=== PATIENT | female | born 1990 | race Caucasian/White ===

== ENCOUNTER 2017-03-21 19:44 | Emergency (ER) | payer OTHER ==
[~2017-03-21] VITALS: Ht 175.3 cm; Wt 90.7 kg
[~2017-03-21 19:44] MED LIST: CEPH500; CEPH500 PO; CLON1 PO; EXPECTA PRENAT1 EACH PO; FLUC150A; IRON150C; LORA.5 PO; NITR100CA; NITR100CA PO; Naprosyn500 MG PO; Norco 5-325 Ta1 EACH PO; OXYACE5T PO; PRENATAL TABLE1 EAC1 PO; PROM25; PROM25 PO; Percocet 5-3251 EACH; QUET300 PO; SERT100 PO; TUMS300 MG PO; Tylenol325 MG PO; Ultram50 MG PO; VALP250 PO; VENL75ER PO; Venlafaxine HCl50 MG PO; Zithromax250 MG PO; Zofran Odt4 MG SL
[2017-03-21] MEDS ORDERED: VENL150ER PO (20:06)
[2017-03-21] MEDS ORDERED: Hydroxyzine HCl50 MG PO (20:06)
[2017-03-21 20:46] LABS: Influenza A Negative (NEGATIVE); Influenza B Negative (NEGATIVE)
[2017-03-21] MEDS ORDERED: Arthritis Pai42.5 GM TOP (21:34)
[2017-03-29] MEDS ORDERED: Prenatabs FA T1 EACH PO (15:54)
[2017-03-29] MEDS ORDERED: IRON236 MG PO (15:57)
[2017-03-29] MEDS ORDERED: PROM25 PO (15:59)
== END 2017-03-21 21:45 | disposition home or self-care (01) ==
LOC: ER 19:44
PROVIDERS: Emergency Medicine
DX: O99.513 Diseases of the respiratory system complicating pregnancy, third trimester (principal); J02.9 Acute pharyngitis, unspecified; O99.89 Other specified diseases and conditions complicating pregnancy, childbirth and the puerperium; M79.1 Myalgia; O99.333 Smoking (tobacco) complicating pregnancy, third trimester; F17.210 Nicotine dependence, cigarettes, uncomplicated; Z3A.37 37 weeks gestation of pregnancy; Z88.0 Allergy status to penicillin; Z91.013 Allergy to seafood; Z88.8 Allergy status to other drugs, medicaments and biological substances; Z79.899 Other long term (current) drug therapy
CPT/HCPCS: 87081; 87430; 87804; 93005; 93010; 99283

== ENCOUNTER 2017-04-02 05:19 | Inpatient (IN) | payer OTHER ==
[2017-03-31 12:18] LABS: BASOPHILS ABSOLUTE AUTO 0.05 K/mm3 (0.00-0.23); BASOPHILS PERCENT AUTO 1 % (0-2); EOSINOPHILS ABSOLUTE AUTO 0.06 K/mm3 (0.00-0.68); EOSINOPHILS PERCENT AUTO 1 % (0-6); Hematocrit 28.9 % (33.0-51.0); Hemoglobin 8.5 g/dL (11.5-16.0); IMMATURE GRAN ABSOLUTE AUTO 0.16 K/mm3 (0.00-0.10); IMMATURE GRAN PERCENT AUTO 2 % (0-1); LYMPHOCYTES ABSOLUTE AUTO 1.66 K/mm3 (0.84-5.20); LYMPHOCYTES PERCENT AUTO 16 % (21-46); MONOCYTES ABSOLUTE AUTO 0.79 K/mm3 (0.16-1.47); MONOCYTES PERCENT AUTO 7 % (4-13); Mean Corpuscular HGB 20.4 pg (26.0-34.0); Mean Corpuscular HGB Conc 29.4 g/dL (31.5-36.5); Mean Corpuscular Volume 69 fL (80-100); Mean Platelet Volume 10.1 fL (9.1-12.4); NEUTROPHILS ABSOLUTE AUTO 7.99 K/mm3 (1.96-9.15); NEUTROPHILS PERCENT AUTO 75 % (41-73); Platelet Count 332 K/mm3 (150-400); RDW Coefficient Variation 19.5 % (11.7-14.2); RDW Standard Deviation 49.2 fL (35.1-46.3); Red Blood Cell Count 4.17 M/mm3 (3.80-5.20); White Blood Cell Count 10.71 K/mm3 (4.00-11.30)
[~2017-04-02] VITALS: Ht 175.3 cm; Wt 90.7 kg
[~2017-04-02 05:19] MED LIST changes: +Arthritis Pai42.5 GM TOP; +Hydroxyzine HCl50 MG PO; +IRON236 MG PO; +Prenatabs FA T1 EACH PO; +VENL150ER PO
[2017-04-02 06:04] LABS: U Amphetamine Screen Not Detected; U Barbituate Screen Not Detected; U Benzodiazapine Screen Not Detected; U Buprenorphine Screen Not Detected; U Cannabinoids Screen Not Detected; U Cocaine Screen Not Detected; U Methadone Screen Not Detected; U Methamphetamine Screen Not Detected; U Opiates Screen Not Detected; U Oxycodone Screen Not Detected; U Phencyclidine Screen Not Detected; U Propoxyphene Screen Not Detected
[2017-04-02 08:19] LABS: PCO2 Cord - Arterial 69.9 mmHg (40-50); PO2 Cord - Arterial 14.3 mmHg (16-20); pH Cord - Arterial 7.17 (7.28-7.35)
[2017-04-02 08:21] LABS: PCO2 Cord - Venous 48.4 mmHg (40-50); PO2 Cord - Venous 22.7 mmHg (28-32); pH Umbilical Cord - Venous 7.34 (7.26-7.35)
[2017-04-03 06:54] LABS: Hematocrit 25.1 % (33.0-51.0); Hemoglobin 7.3 g/dL (11.5-16.0); Mean Corpuscular HGB 20.4 pg (26.0-34.0); Mean Corpuscular HGB Conc 29.1 g/dL (31.5-36.5); Mean Corpuscular Volume 70 fL (80-100); Mean Platelet Volume 9.8 fL (9.1-12.4); Platelet Count 307 K/mm3 (150-400); RDW Coefficient Variation 19.3 % (11.7-14.2); RDW Standard Deviation 49.4 fL (35.1-46.3); Red Blood Cell Count 3.57 M/mm3 (3.80-5.20); White Blood Cell Count 15.22 K/mm3 (4.00-11.30)
[2017-04-04] MEDS ORDERED: Percocet 5-3251 EACH PO (12:35)
== END 2017-04-04 12:54 | disposition home or self-care (01) | DRG 766 ==
LOC: BC 05:19
PROVIDERS: Obstetrics & Gynecology
PROC: 10D00Z1 Extraction of Products of Conception, Low, Open Approach (ICD-10-PCS; principal; 2017-04-02 07:30)
PROC: 0UT70ZZ Resection of Bilateral Fallopian Tubes, Open Approach (ICD-10-PCS; 2017-04-02 07:30)
DX: O34.211 Maternal care for low transverse scar from previous cesarean delivery (principal); D64.9 Anemia, unspecified; O99.02 Anemia complicating childbirth; Z37.0 Single live birth; Z3A.39 39 weeks gestation of pregnancy; Z88.8 Allergy status to other drugs, medicaments and biological substances; Z88.0 Allergy status to penicillin; Z91.013 Allergy to seafood; Z79.899 Other long term (current) drug therapy; O99.334 Smoking (tobacco) complicating childbirth; F17.200 Nicotine dependence, unspecified, uncomplicated
CPT/HCPCS: 36415; 82803; 85025; 85027; 86850; 86900; 86901; 88302; J0690; J1885; J2270; J2405; J2590; J2765; J3010; J7120

== ENCOUNTER → 2017-05-25 | Outpatient (CLI) | payer OTHER ==
[~2017-05-25] MED LIST changes: +Ativan0.5 MG PO; +HYOS.125 SL; +Imitrex50 MG JT; +OLAN5 PO; +Percocet 5-3251 EACH PO
== END | disposition home or self-care (01) ==
LOC: LAB EV 14:58
DX: R30.0 Dysuria (principal)
CPT/HCPCS: 87077; 87086; 87186

== ENCOUNTER 2017-05-27 03:50 | Observation (INO) | payer OTHER ==
[~2017-05-27] VITALS: Ht 175.3 cm; Wt 72.6 kg
[~2017-05-27 03:50] MED LIST changes: -Ativan0.5 MG PO; -HYOS.125 SL; -Imitrex50 MG JT; -OLAN5 PO
[2017-05-27] MEDS ORDERED: HYOS.125 SL (04:11)
[2017-05-27] MEDS ORDERED: NITR100CA PO (04:11)
[2017-05-27] MEDS ORDERED: LORA.5 PO (04:11)
[2017-05-27] MEDS ORDERED: Imitrex50 MG JT (04:11)
[2017-05-27] MEDS ORDERED: OLAN5 PO (04:11)
[2017-05-27 10:25] LABS: Source, Urine Clean Catch
[2017-05-27 10:29] LABS: Bilirubin, Urine Neg (Neg); Blood, Urine Neg (Neg); Glucose Qualitative, Urine Neg (Neg); Ketones, Urine Neg (Neg); Leukocyte Esterase, Urine Neg (Neg); Nitrite, Urine Pos (Neg); Protein, Urine Neg (Neg); Specific Gravity, Urine 1.015 (1.003-1.022); Urobilinogen, Urine 1+ (Normal)
[2017-05-27 10:39] LABS: Appearance, Urine Clear (Clear); Color, Urine Yellow (P-Yellow)
[2017-05-27 10:42] LABS: Bacteria Few /hpf; Red Blood Cells, Urine 0-2 /hpf (0-2); Squamous Epithelial Cells Mod /hpf (Few)
[2017-05-27] MEDS ORDERED: Ativan0.5 MG PO (14:05)
== END 2017-05-27 14:25 | disposition home or self-care (01) ==
LOC: ER 03:50 → EOR 03:51
PROVIDERS: Emergency Medicine
DX: F32.9 Major depressive disorder, single episode, unspecified (principal); F17.210 Nicotine dependence, cigarettes, uncomplicated; R45.851 Suicidal ideations; Z91.5 Personal history of self-harm; Z88.0 Allergy status to penicillin; Z91.041 Radiographic dye allergy status; Z91.013 Allergy to seafood; Z79.899 Other long term (current) drug therapy; Z88.8 Allergy status to other drugs, medicaments and biological substances; Z98.890 Other specified postprocedural states
CPT/HCPCS: 36415; 81001; 99285; G0378; Q3014

== ENCOUNTER → 2017-08-12 | Outpatient (CLI) | payer OTHER ==
[~2017-08-12] MED LIST changes: +Ativan0.5 MG PO; +HYOS.125 SL; +Imitrex50 MG JT; +OLAN5 PO
[2017-08-12 12:42] LABS: BASOPHILS ABSOLUTE AUTO 0.04 K/mm3 (0.00-0.23); BASOPHILS PERCENT AUTO 1 % (0-2); EOSINOPHILS ABSOLUTE AUTO 0.04 K/mm3 (0.00-0.68); EOSINOPHILS PERCENT AUTO 1 % (0-6); Hematocrit 36.7 % (33.0-51.0); Hemoglobin 11.4 g/dL (11.5-16.0); IMMATURE GRAN ABSOLUTE AUTO 0.01 K/mm3 (0.00-0.10); IMMATURE GRAN PERCENT AUTO 0 % (0-1); LYMPHOCYTES ABSOLUTE AUTO 2.12 K/mm3 (0.84-5.20); LYMPHOCYTES PERCENT AUTO 25 % (21-46); MONOCYTES PERCENT AUTO 6 % (4-13); Mean Corpuscular HGB 22.9 pg (26.0-34.0); Mean Corpuscular HGB Conc 31.1 g/dL (31.5-36.5); Mean Corpuscular Volume 74 fL (80-100); Mean Platelet Volume 10.4 fL (9.1-12.4); NEUTROPHILS ABSOLUTE AUTO 5.83 K/mm3 (1.96-9.15); NEUTROPHILS PERCENT AUTO 68 % (41-73); Platelet Count 359 K/mm3 (150-400); RDW Coefficient Variation 16.5 % (11.7-14.2); RDW Standard Deviation 43.3 fL (35.1-46.3); Red Blood Cell Count 4.98 M/mm3 (3.80-5.20); White Blood Cell Count 8.54 K/mm3 (4.00-11.30)
[2017-08-12 12:52] LABS: Anion Gap 10 mmol/L (6-16); Blood Urea Nitrogen 13 mg/dL (8-24); Bun/Creatinine Ratio 17.1 (12.0-20.0); CO2, Blood 28 mmol/L (21-32); Calcium, Blood 8.8 mg/dL (8.5-10.1); Chloride, Blood 105 mmol/L (98-108); Creatinine, Blood 0.76 mg/dL (0.40-1.00); Glomerular Filtration Rate >60 (60-); Glucose, Blood 92 mg/dL (70-99); Potassium, Blood 3.9 mmol/L (3.5-5.5); Sodium, Blood 143 mmol/L (136-145)
== END | disposition home or self-care (01) ==
LOC: LAB SHORT 12:38 → LAB EV 12:38
PROVIDERS: Physician Assistant Surgical
DX: M54.5 Low back pain (principal); R30.0 Dysuria
CPT/HCPCS: 80048; 85025